=== PATIENT | male | born 1990 | race Caucasian/White ===

== ENCOUNTER 2021-03-09 12:30 | Emergency (ER) | payer OTHER ==
[2021-03-09 12:52] VITALS: BP 147/97; PULSE 80; TEMP 98.4; BMI 24.4
== END 2021-03-09 13:42 | disposition home or self-care (01) ==
LOC: FER 12:30
DX: M25.571 Pain in right ankle and joints of right foot (principal)
CPT/HCPCS: 73610-TC-RT-FY; 99284-25

== ENCOUNTER 2021-04-05 23:36 | Emergency (ER) | payer OTHER ==
[2021-04-05 23:48] VITALS: BP 153/95; PULSE 121; TEMP 98.8; BMI 25.7
[2021-04-06] MEDS ORDERED: IBUPROFEN 600 MG TABLET (FP) PO ONE ×2 (00:08→00:16)
== END 2021-04-06 01:37 | disposition home or self-care (01) ==
LOC: JER 23:36
DX: R60.0 Localized edema (principal)
CPT/HCPCS: 73610-TC-RT-FY; 73630-TC-RT-FY; 93971-TC; 99284-25

== ENCOUNTER 2021-06-03 12:37 | Emergency (ER) | payer OTHER ==
[2021-06-03 13:19] VITALS: TEMP 98; BMI 23.0
[2021-06-03] MEDS ORDERED: SODIUM CHLORIDE 0.9% 500 ML INFUS.BAG IV ONE (16:04)
[2021-06-03] MEDS ORDERED: diazePAM CARPU-JECT 10 MG/2 ML DISP.SYRIN IVPUSH ONE ×3 (16:04→22:12)
[2021-06-03] MEDS ORDERED: diazePAM CARPU-JECT 10 MG/2 ML DISP.SYRIN ONE ×2 (16:20→22:29)
[2021-06-03 16:51] LABS: BASO % 0.9 % (0-2.0); EOS % 1.3 % (0-4.5); HEMOGLOBIN 16.3 GM/dL (11.7-16.9); LYMPH % 24.6 % (8-40); MCH 35.7 pg (25.7-33.7); MCHC 34.7 g/dl (32.0-35.9); MEAN CELL VOLUME 102.9 fl (80-96); MEAN PLT VOLUME 8.8 fl (7.5-11.1); MONO % 8.4 % (3.8-10.2); NEUT % 64.8 % (42.8-82.8); PLATELET COUNT 261 10^3/uL (134-434); RBC 4.57 M/mm3 (4.00-5.60); RDW 12.7 % (11.9-15.9); WHITE BLOOD COUNT 7.6 K/mm3 (4.0-10.0)
[2021-06-03 17:06] LABS: CHLORIDE 99 mmol/L (98-107); SODIUM 138 mmol/L (136-145)
[2021-06-03 17:09] LABS: ALBUMIN 4.6 g/dl (3.4-5.0); ANION GAP 11 MMOL/L (8-16); BLOOD UREA NITROGEN 11.7 mg/dL (7-18); CO2 27 mmol/L (21-32); GLUCOSE,RANDOM 80 mg/dL (74-106)
[2021-06-03 17:12] LABS: CREATININE 0.9 mg/dL (0.55-1.3); SGOT/AST 378 U/L (15-37); SGPT/ALT 162 U/L (13-61)
[2021-06-03 17:13] LABS: BILIRUBIN,TOTAL 0.9 mg/dL (0.2-1)
[2021-06-03 17:14] LABS: TOT PROT 8.8 g/dl (6.4-8.2)
[2021-06-03 17:15] LABS: ALK PHOS 175 U/L (45-117)
[2021-06-03 17:55] LABS: LIPASE 907 U/L (73-393)
[2021-06-03 19:36] VITALS: BP 141/93; PULSE 105
[2021-06-03 21:56] LABS: OPIATES, URI NEGATIVE (NEGATIVE); PHENCYCLIDINE,URINE NEGATIVE (NEGATIVE); URINE AMPHETAMINES NEGATIVE (NEGATIVE); URINE BENZODIAZEPINES NEGATIVE (NEGATIVE)
[2021-06-03 22:14] LABS: COCAINE, UR POSITIVE (NEGATIVE); METHADONE, UR NEGATIVE (NEGATIVE); URINE BARBITURATES NEGATIVE (NEGATIVE)
== END 2021-06-04 00:35 | disposition home or self-care (01) ==
LOC: JER 12:37
PROC: 3E033NZ Introduction of Analgesics, Hypnotics, Sedatives into Peripheral Vein, Percutaneous Approach (ICD-10-PCS; principal; 2021-06-03)
PROC: 3E033GC Introduction of Other Therapeutic Substance into Peripheral Vein, Percutaneous Approach (ICD-10-PCS; 2021-06-03)
DX: F10.20 Alcohol dependence, uncomplicated (principal); R74.01 Elevation of levels of liver transaminase levels
CPT/HCPCS: 36415; 71045-TC-FY; 76705-TC; 80053; 80307; 82550; 82553; 83690; 84484; 85025; 93005; 93010; 99284-25

== ENCOUNTER 2021-07-21 13:34 | Inpatient (IN) | payer OTHER ==
[2021-07-21] MEDS ORDERED: SODIUM CHLORIDE 0.9% 500 ML INFUS.BAG IV ONE (14:34)
[2021-07-21] MEDS ORDERED: diazePAM CARPU-JECT 10 MG/2 ML DISP.SYRIN IVPUSH ONE ×2 (14:36→15:51)
[2021-07-21] MEDS ORDERED: ONDANSETRON 4 MG/2 ML VIAL IVPB ONE (14:36)
[2021-07-21 14:39] VITALS: BMI 25.7
[2021-07-21] MEDS ORDERED: diazePAM CARPU-JECT 10 MG/2 ML DISP.SYRIN ONE ×2 (14:57→15:58)
[2021-07-21 15:06] LABS: BASO % 0.8 % (0-2.0); EOS % 0.3 % (0-4.5); HEMATOCRIT 46.7 % (35.4-49); HEMOGLOBIN 16.4 GM/dL (11.7-16.9); MCH 34.8 pg (25.7-33.7); MEAN CELL VOLUME 99.5 fl (80-96); MEAN PLT VOLUME 8.4 fl (7.5-11.1); MONO % 7.6 % (3.8-10.2); NEUT % 75.3 % (42.8-82.8); PLATELET COUNT 307 10^3/uL (134-434); RBC 4.69 M/mm3 (4.00-5.60); RDW 12.6 % (11.9-15.9); WHITE BLOOD COUNT 11.9 K/mm3 (4.0-10.0)
[2021-07-21] MEDS ORDERED: FAMOTIDINE 20 MG/50 ML IVPB 20 MG/50 ML MG IVPB ONE ×2 (15:38→15:41)
[2021-07-21 15:39] LABS: CALCIUM 10.3 mg/dL (8.5-10.1)
[2021-07-21 15:41] LABS: ALBUMIN 4.6 g/dl (3.4-5.0); BLOOD UREA NITROGEN 9.6 mg/dL (7-18)
[2021-07-21 15:42] LABS: MAGNESIUM 1.8 mg/dL (1.8-2.4)
[2021-07-21 15:43] LABS: CREATININE 0.9 mg/dL (0.55-1.3); PHOSPHOROUS 3.3 mg/dL (2.5-4.9)
[2021-07-21 15:45] LABS: TOT PROT 8.7 g/dl (6.4-8.2)
[2021-07-21 16:08] LABS: LACTIC ACID 3.1 mmol/L (0.4-2.0)
[2021-07-21] MEDS ORDERED: MAGNESIUM SULF 50% (8.12 MEQ/2 ML-1 GM VIAL) IVPB ONE (16:14)
[2021-07-21] MEDS ORDERED: MAGNESIUM SULFATE IN WATER 2 GM/50 ML IVPB IVPB ONE (17:42)
[2021-07-21] MEDS ORDERED: POTASSIUM CHLORIDE TABS 20 MEQ TABLET.ER (FP) PO ONE (21:42)
[2021-07-21] MEDS ORDERED: LORazepam 1 MG TABLET PO PRN (21:43)
[2021-07-21] MEDS ORDERED: FOLIC ACID INJECTION - 1 MG, THIAMINE HCL 100 MG in SODIUM CHLORIDE 998.8 ML IVPB ONE (21:43)
[2021-07-21] MEDS ORDERED: LACTATED RINGERS SOLUTION 1,000 ML/1,000 ML INFUS.BAG IV SCH (21:45)
[2021-07-21] MEDS ORDERED: LORazepam 1 MG TABLET ONE (22:19)
[2021-07-21] MEDS: LACTATED RINGERS SOLUTION 1,000 ML/1,000 ML INFUS.BAG IV SCH (22:21)
[2021-07-21] MEDS: LORazepam 1 MG TABLET PO SCH (22:22)
[2021-07-21] MEDS ORDERED: MULTIVITAMINS (DAILY MVI) TABLET (FP) PO ONE (22:30)
[2021-07-21 23:36] LABS: OPIATES, URI NEGATIVE (NEGATIVE); PHENCYCLIDINE,URINE NEGATIVE (NEGATIVE); URINE BARBITURATES NEGATIVE (NEGATIVE)
[2021-07-21 23:41] LABS: PH,URINE 7.5 (5.0-8.0); URINE APPEARANCE CLEAR; URINE BILIRUBIN NEGATIVE (NEGATIVE); URINE COLOR YELLOW; URINE GLUCOSE (UA) NEGATIVE (NEGATIVE); URINE KETONE 1+ (NEGATIVE); URINE LEUK ESTERASE NEGATIVE (NEGATIVE); URINE NITRITE NEGATIVE (NEGATIVE); URINE PROTEIN TRACE (NEGATIVE)
[2021-07-21] MEDS ORDERED: MULTIVITAMINS (DAILY MVI) TABLET (FP) ONE (23:54)
[2021-07-21 23:59] LABS: COCAINE, UR NEGATIVE (NEGATIVE); METHADONE, UR NEGATIVE (NEGATIVE); URINE AMPHETAMINES NEGATIVE (NEGATIVE); URINE BENZODIAZEPINES POSITIVE (NEGATIVE)
[2021-07-22] MEDS ORDERED: LORazepam 1 MG TABLET ONE (04:23)
[2021-07-22] MEDS: LORazepam 1 MG TABLET PO SCH ×4 (04:27→22:57)
[2021-07-22 06:09] LABS: BASO % 0.7 % (0-2.0); EOS % 2.9 % (0-4.5); HEMATOCRIT 39.1 % (35.4-49); HEMOGLOBIN 13.8 GM/dL (11.7-16.9); LYMPH % 19.3 % (8-40); MCH 35.7 pg (25.7-33.7); MCHC 35.2 g/dl (32.0-35.9); MEAN CELL VOLUME 101.3 fl (80-96); MEAN PLT VOLUME 9.1 fl (7.5-11.1); MONO % 7.4 % (3.8-10.2); NEUT % 69.7 % (42.8-82.8); PLATELET COUNT 237 10^3/uL (134-434); RBC 3.86 M/mm3 (4.00-5.60); RDW 12.5 % (11.9-15.9); WHITE BLOOD COUNT 10.5 K/mm3 (4.0-10.0)
[2021-07-22 06:31] LABS: BLOOD UREA NITROGEN 5.8 mg/dL (7-18); MAGNESIUM 1.7 mg/dL (1.8-2.4)
[2021-07-22 06:32] LABS: CREATININE 0.7 mg/dL (0.55-1.3)
[2021-07-22 06:33] LABS: PHOSPHOROUS 2.6 mg/dL (2.5-4.9)
[2021-07-22 06:35] LABS: BILIRUBIN,TOTAL 1.7 mg/dL (0.2-1)
[2021-07-22 06:49] LABS: ALBUMIN 3.4 g/dl (3.4-5.0); CALCIUM 8.5 mg/dL (8.5-10.1); TOT PROT 6.5 g/dl (6.4-8.2)
[2021-07-22] MEDS: PANTOPRAZOLE SODIUM 40 MG VIAL IVPUSH SCH (10:09)
[2021-07-22] MEDS: THIAMINE HCL 100 MG TABLET (FP) PO SCH (10:09)
[2021-07-22] MEDS: FOLIC ACID 1 MG TABLET (FP) PO SCH (10:10)
[2021-07-22] MEDS: LACTATED RINGERS SOLUTION 1,000 ML/1,000 ML INFUS.BAG IV SCH ×2 (10:18→12:18)
[2021-07-22] MEDS: ENOXAPARIN NA (PORCINE) 40 MG/0.4 ML DISP.SYRIN SQ SCH (10:48)
[2021-07-22] MEDS: POTASSIUM CHLORIDE TABS 20 MEQ TABLET.ER (FP) PO SCH (12:17)
[2021-07-22] MEDS ORDERED: LORazepam 0.5 MG TABLET ONE (16:23)
[2021-07-22] MEDS: MAGNESIUM OXIDE 400 MG TABLET (FP) PO SCH (22:55)
[2021-07-23] MEDS: LORazepam 1 MG TABLET PO SCH ×3 (05:56→17:04)
[2021-07-23 08:43] LABS: ALBUMIN 3.8 g/dl (3.4-5.0); BLOOD UREA NITROGEN 3.1 mg/dL (7-18); CALCIUM 9.2 mg/dL (8.5-10.1); MAGNESIUM 1.8 mg/dL (1.8-2.4)
[2021-07-23 08:46] LABS: CREATININE 0.7 mg/dL (0.55-1.3)
[2021-07-23 08:47] LABS: PHOSPHOROUS 2.2 mg/dL (2.5-4.9)
[2021-07-23 08:48] LABS: BILIRUBIN,TOTAL 1.4 mg/dL (0.2-1); TOT PROT 7.2 g/dl (6.4-8.2)
[2021-07-23] MEDS: THIAMINE HCL 100 MG TABLET (FP) PO SCH (09:51)
[2021-07-23] MEDS: FOLIC ACID 1 MG TABLET (FP) PO SCH (09:51)
[2021-07-23] MEDS: POTASSIUM CHLORIDE TABS 20 MEQ TABLET.ER (FP) PO SCH (09:52)
[2021-07-23] MEDS: MAGNESIUM OXIDE 400 MG TABLET (FP) PO SCH (09:52)
[2021-07-23] MEDS: PANTOPRAZOLE SODIUM 40 MG VIAL IVPUSH SCH (09:52)
[2021-07-23] MEDS: ENOXAPARIN NA (PORCINE) 40 MG/0.4 ML DISP.SYRIN SQ SCH ×2 (10:45→10:48)
[2021-07-23] MEDS ORDERED: NAPH,MB-DB/K PH,MBDB POWDER PACKET PO SCH (14:15)
[2021-07-23] MEDS: LACTATED RINGERS SOLUTION 1,000 ML/1,000 ML INFUS.BAG IV SCH (14:23)
[2021-07-23] MEDS ORDERED: PT OWN MED DRAWER 7, Y5N ONE (17:39)
[2021-07-23 17:54] VITALS: TEMP 98.7
[2021-07-23] MEDS ORDERED: LISINOPRIL 20 MG TABLET PO ONE (18:08)
[2021-07-23] MEDS ORDERED: LACTATED RINGERS SOLUTION 1,000 ML/1,000 ML INFUS.BAG IV SCH (18:11)
[2021-07-23 20:06] VITALS: PULSE 127
[2021-07-23 20:12] VITALS: BP 160/100
[2021-07-24] MEDS ORDERED: LORazepam 0.5 MG TABLET PO PRN
[2021-07-24] MEDS ORDERED: LORazepam 0.5 MG TABLET PO SCH (05:00)
[2021-07-24] MEDS ORDERED: LISINOPRIL 20 MG TABLET PO SCH (10:00)
[2021-07-25] MEDS ORDERED: LORazepam 0.5 MG TABLET PO ONE (05:00)
== END 2021-07-23 20:45 | disposition left against medical advice (07) | DRG 770 ==
LOC: JER 13:34 → JERBED 18:29 → J4W 07-22 07:28
PROVIDERS: ADMIT Internal Medicine; ATTEND Internal Medicine
DX: F10.239 Alcohol dependence with withdrawal, unspecified (principal); E78.5 Hyperlipidemia, unspecified; I10 Essential (primary) hypertension; F14.90 Cocaine use, unspecified, uncomplicated; D72.829 Elevated white blood cell count, unspecified; K76.0 Fatty (change of) liver, not elsewhere classified; K86.1 Other chronic pancreatitis; E83.52 Hypercalcemia; E87.6 Hypokalemia; R74.01 Elevation of levels of liver transaminase levels; Z72.0 Tobacco use
CPT/HCPCS: 36415; 70450-TC; 71045-TC-FY; 72125-TC; 74176-TC; 76705-TC; 80053; 80061; 80307; 81003; 82550; 82553; 83605; 83690; 83735; 84100; 84484; 85025; 86705; 86707; 86708; 87040; 87086; 87340; 87350; 87517; 87522; 93005; 93010; 99291; C9803; U0003; U0005

== ENCOUNTER 2021-08-15 15:31 | Inpatient (IN) | payer OTHER ==
[2021-08-15] MEDS ORDERED: NICOTINE 10 MG CARTRIDGE (INHALER) IH PRN (18:03)
[2021-08-15] MEDS ORDERED: MAGNESIUM HYDROX 2400MG/30ML ORAL SUSPENSION 30 ML CUP PO PRN (18:03)
[2021-08-15] MEDS ORDERED: BISMUTH SUBSALICYLATE 524 MG/30 ML PO PRN (18:03)
[2021-08-15] MEDS ORDERED: ONDANSETRON *ODT* 4 MG TABLET SL PRN (18:03)
[2021-08-15] MEDS ORDERED: MAGNESIUM CITRATE 300 ML BOTTLE PO PRN (18:03)
[2021-08-15] MEDS ORDERED: MAG HYDROX/AL HYDROX/SIMETH 30 ML UNIT-DOSE CUP PO PRN (18:03)
[2021-08-15] MEDS ORDERED: IBUPROFEN 400 MG TABLET (FP) PO PRN (18:03)
[2021-08-15] MEDS ORDERED: ACETAMINOPHEN 325 MG TABLET (FP) PO PRN ×2 (18:03)
[2021-08-15] MEDS ORDERED: MENTHOL/PHENOL 1 EACH UD MM PRN (18:03)
[2021-08-15 18:54] VITALS: BMI 24.4
[2021-08-15] MEDS: NICOTINE 21 MG/24 HOURS TOPICAL PATCH TD SCH (19:25)
[2021-08-15] MEDS: LORazepam 2 MG TABLET PO SCH ×2 (19:25→22:25)
[2021-08-15] MEDS: PRENATAL VITAMINS W/ FOLIC ACID TABLET (FP) PO SCH (19:30)
[2021-08-15] MEDS: MELATONIN 5 MG TABLETS PO SCH (22:25)
[2021-08-15] MEDS: THIAMINE HCL 100 MG TABLET (FP) PO SCH (22:25)
[2021-08-15] MEDS: hydrOXYzine PAMOATE 25 MG CAPSULE (FP) PO SCH (22:25)
[2021-08-16] MEDS: hydrOXYzine PAMOATE 25 MG CAPSULE (FP) PO SCH ×5 (05:50→22:29)
[2021-08-16] MEDS: LORazepam 2 MG TABLET PO SCH ×4 (05:50→22:30)
[2021-08-16] MEDS: NICOTINE 21 MG/24 HOURS TOPICAL PATCH TD SCH (10:41)
[2021-08-16] MEDS: PRENATAL VITAMINS W/ FOLIC ACID TABLET (FP) PO SCH (10:41)
[2021-08-16 12:13] LABS: HEMATOCRIT 41.8 % (35.4-49); HEMOGLOBIN 14.8 GM/dL (11.7-16.9); MCH 35.7 pg (25.7-33.7); MCHC 35.3 g/dl (32.0-35.9); MEAN CELL VOLUME 101.1 fl (80-96); MEAN PLT VOLUME 9.5 fl (7.5-11.1); PLATELET COUNT 269 10^3/uL (134-434); RBC 4.13 M/mm3 (4.00-5.60); RDW 12.7 % (11.9-15.9); WHITE BLOOD COUNT 11.1 K/mm3 (4.0-10.0)
[2021-08-16 12:45] LABS: CALCIUM 9.6 mg/dL (8.5-10.1)
[2021-08-16 12:46] LABS: ALBUMIN 3.6 g/dl (3.4-5.0); BLOOD UREA NITROGEN 8.7 mg/dL (7-18)
[2021-08-16 12:49] LABS: CREATININE 0.8 mg/dL (0.55-1.3)
[2021-08-16 12:50] LABS: BILIRUBIN,TOTAL 1.2 mg/dL (0.2-1)
[2021-08-16 12:51] LABS: TOT PROT 6.9 g/dl (6.4-8.2)
[2021-08-16] MEDS: LORazepam 1 MG TABLET PO PRN ×2 (14:06→20:42)
[2021-08-16] MEDS: METHOCARBAMOL 500 MG TABLET PO PRN (18:35)
[2021-08-16] MEDS ORDERED: cloNIDine HCL 0.1 MG TABLET PO ONE (21:44)
[2021-08-16] MEDS: MELATONIN 5 MG TABLETS PO SCH (22:29)
[2021-08-16] MEDS: THIAMINE HCL 100 MG TABLET (FP) PO SCH (22:29)
[2021-08-17] MEDS: LORazepam 1 MG TABLET PO SCH ×4 (05:31→22:18)
[2021-08-17] MEDS: METHOCARBAMOL 500 MG TABLET PO PRN ×2 (05:31→17:59)
[2021-08-17] MEDS: hydrOXYzine PAMOATE 25 MG CAPSULE (FP) PO SCH ×5 (05:31→22:18)
[2021-08-17] MEDS ORDERED: PATIENT'S OWN MEDICATION (NON-FORMULARY) (Lisinopril/Hydrochlorothiazide [Lisinopril-Hctz PO SCH (10:00)
[2021-08-17] MEDS: SPIRONOLACTONE 25 MG TABLET PO SCH (10:19)
[2021-08-17] MEDS: LISINOPRIL 20 MG TABLET PO SCH (10:20)
[2021-08-17] MEDS: HYDROCHLOROTHIAZIDE 25 MG TABLET (FP) PO SCH (10:20)
[2021-08-17] MEDS: PRENATAL VITAMINS W/ FOLIC ACID TABLET (FP) PO SCH (10:22)
[2021-08-17] MEDS: NICOTINE 21 MG/24 HOURS TOPICAL PATCH TD SCH (10:22)
[2021-08-17] MEDS: LORazepam 1 MG TABLET PO PRN (13:36)
[2021-08-17 16:53] LABS: HEMOGLOBIN 13.5 GM/dL (11.7-16.9)
[2021-08-17 16:55] LABS: HEMATOCRIT 39.5 % (35.4-49); MCH 35.5 pg (25.7-33.7); MCHC 34.2 g/dl (32.0-35.9); MEAN CELL VOLUME 103.7 fl (80-96); MEAN PLT VOLUME 9.6 fl (7.5-11.1); PLATELET COUNT 248 10^3/uL (134-434); RBC 3.81 M/mm3 (4.00-5.60); RDW 12.6 % (11.9-15.9); WHITE BLOOD COUNT 8.9 K/mm3 (4.0-10.0)
[2021-08-17] MEDS: MELATONIN 5 MG TABLETS PO SCH (22:18)
[2021-08-17] MEDS: THIAMINE HCL 100 MG TABLET (FP) PO SCH (22:18)
[2021-08-18] MEDS ORDERED: LORazepam 0.5 MG TABLET PO PRN
[2021-08-18] MEDS: hydrOXYzine PAMOATE 25 MG CAPSULE (FP) PO SCH ×5 (05:29→22:13)
[2021-08-18] MEDS: LORazepam 0.5 MG TABLET PO SCH ×4 (05:29→22:14)
[2021-08-18] MEDS: PRENATAL VITAMINS W/ FOLIC ACID TABLET (FP) PO SCH (10:35)
[2021-08-18] MEDS: SPIRONOLACTONE 25 MG TABLET PO SCH (10:35)
[2021-08-18] MEDS: LISINOPRIL 20 MG TABLET PO SCH (10:35)
[2021-08-18] MEDS: NICOTINE 21 MG/24 HOURS TOPICAL PATCH TD SCH (10:36)
[2021-08-18] MEDS: HYDROCHLOROTHIAZIDE 25 MG TABLET (FP) PO SCH (10:37)
[2021-08-18] MEDS: MELATONIN 5 MG TABLETS PO SCH (22:13)
[2021-08-18] MEDS: THIAMINE HCL 100 MG TABLET (FP) PO SCH (22:13)
[2021-08-19] MEDS: METHOCARBAMOL 500 MG TABLET PO PRN (02:48)
[2021-08-19] MEDS ORDERED: LORazepam 0.5 MG TABLET PO ONE (05:00)
[2021-08-19] MEDS: hydrOXYzine PAMOATE 25 MG CAPSULE (FP) PO SCH ×2 (05:24→10:56)
[2021-08-19 09:22] VITALS: BP 125/82; PULSE 103; TEMP 97.1
[2021-08-19] MEDS: SPIRONOLACTONE 25 MG TABLET PO SCH (10:55)
[2021-08-19] MEDS: HYDROCHLOROTHIAZIDE 25 MG TABLET (FP) PO SCH (10:55)
[2021-08-19] MEDS: LISINOPRIL 20 MG TABLET PO SCH (10:56)
[2021-08-19] MEDS: PRENATAL VITAMINS W/ FOLIC ACID TABLET (FP) PO SCH (10:56)
[2021-08-19] MEDS: NICOTINE 21 MG/24 HOURS TOPICAL PATCH TD SCH (10:56)
== END 2021-08-19 09:27 | disposition home or self-care (01) | DRG 775 ==
LOC: YASAS 15:31 → Y3N 18:10
PROVIDERS: ADMIT Allergy & Immunology; ATTEND Allergy & Immunology
PROC: HZ2ZZZZ Detoxification Services for Substance Abuse Treatment (ICD-10-PCS; principal; 2021-08-15)
DX: F10.230 Alcohol dependence with withdrawal, uncomplicated (principal); F12.20 Cannabis dependence, uncomplicated; F17.210 Nicotine dependence, cigarettes, uncomplicated; F19.24 Other psychoactive substance dependence with psychoactive substance-induced mood disorder; I10 Essential (primary) hypertension; K76.0 Fatty (change of) liver, not elsewhere classified
CPT/HCPCS: 36415; 71045-TC-FY; 80053; 82550; 82553; 83690; 83735; 84484; 85025; 85027; 85610; 85730; 86780; 93005; 93010; 99281-25; C9803; G0378; J0735; U0003; U0005

== ENCOUNTER 2021-08-20 00:13 | Emergency (ER) | payer OTHER ==
[2021-08-20 00:42] VITALS: BP 150/96; PULSE 130; TEMP 97.2; BMI 24.0
[2021-08-20] MEDS ORDERED: chlordiazePOXIDE HCL 25 MG CAPSULE PO ONE (01:28)
[2021-08-20] MEDS ORDERED: diazePAM 5 MG TABLET PO ONE (01:29)
[2021-08-20] MEDS ORDERED: diazePAM 5 MG TABLET ONE (01:30)
== END 2021-08-20 02:20 | disposition left against medical advice (07) ==
LOC: JER 00:13
DX: F41.9 Anxiety disorder, unspecified (principal); R25.1 Tremor, unspecified
CPT/HCPCS: 99283-25

== ENCOUNTER 2021-11-13 20:54 | Observation (INO) | payer OTHER ==
[2021-11-13 21:10] VITALS: BMI 26.6
[2021-11-13] MEDS ORDERED: SODIUM CHLORIDE 0.9% 500 ML INFUS.BAG IV ONE ×2 (21:49→22:58)
[2021-11-13] MEDS ORDERED: ONDANSETRON 4 MG/2 ML VIAL IVPB ONE ×2 (22:04→23:31)
[2021-11-13] MEDS ORDERED: ONDANSETRON 4 MG/2 ML VIAL ONE ×2 (22:19→23:33)
[2021-11-13 22:26] LABS: BASO % 0.4 % (0-2.0); EOS % 0.3 % (0-4.5); HEMATOCRIT 47.2 % (35.4-49); HEMOGLOBIN 16.1 GM/dL (11.7-16.9); LYMPH % 11.6 % (8-40); MCH 33.5 pg (25.7-33.7); MCHC 34.2 g/dl (32.0-35.9); MEAN CELL VOLUME 98.1 fl (80-96); MEAN PLT VOLUME 7.9 fl (7.5-11.1); MONO % 5.9 % (3.8-10.2); NEUT % 81.8 % (42.8-82.8); PLATELET COUNT 328 10^3/uL (134-434); RBC 4.81 M/mm3 (4.00-5.60); WHITE BLOOD COUNT 11.2 K/mm3 (4.0-10.0)
[2021-11-13 22:40] LABS: CHLORIDE 102 mmol/L (98-107); SODIUM 141 mmol/L (136-145)
[2021-11-13 22:42] LABS: ALBUMIN 4.6 g/dl (3.4-5.0); ANION GAP 12 MMOL/L (8-16); CALCIUM 9.7 mg/dL (8.5-10.1); CO2 28 mmol/L (21-32); GLUCOSE,RANDOM 105 mg/dL (74-106)
[2021-11-13 22:43] LABS: BLOOD UREA NITROGEN 7.4 mg/dL (7-18)
[2021-11-13 22:45] LABS: CREATININE 1.6 mg/dL (0.55-1.3); SGOT/AST 111 U/L (15-37); SGPT/ALT 110 U/L (13-61)
[2021-11-13 22:47] LABS: BILIRUBIN,TOTAL 0.6 mg/dL (0.2-1); TOT PROT 8.3 g/dl (6.4-8.2)
[2021-11-13 22:48] LABS: ALK PHOS 136 U/L (45-117)
[2021-11-13] MEDS ORDERED: diazePAM 5 MG TABLET PO ONE (23:07)
[2021-11-13] MEDS ORDERED: diazePAM 5 MG TABLET ONE (23:15)
[2021-11-13] MEDS ORDERED: diazePAM CARPU-JECT 10 MG/2 ML DISP.SYRIN IVPUSH ONE (23:44)
[2021-11-13] MEDS ORDERED: diazePAM CARPU-JECT 10 MG/2 ML DISP.SYRIN ONE (23:48)
[2021-11-14 00:01] LABS: LIPASE 164 U/L (73-393)
[2021-11-14] MEDS ORDERED: TRIMETHOBENZAMIDE HCL 200MG/2ML INJ IM PRN ×2 (01:32→08:25)
[2021-11-14 01:48] LABS: MAGNESIUM 2.1 mg/dL (1.8-2.4)
[2021-11-14] MEDS ORDERED: FOLIC ACID INJECTION - 1 MG, THIAMINE HCL 100 MG, MULTIVIT INJECTION ADULT 10 ML in SOD... IVPB ONE (01:50)
[2021-11-14 01:51] LABS: PHOSPHOROUS 5.4 mg/dL (2.5-4.9)
[2021-11-14] MEDS ORDERED: LORazepam 1 MG TABLET PO PRN (02:02)
[2021-11-14] MEDS ORDERED: LORazepam 2 MG/ML SDV VIAL IVPUSH ONE (05:00)
[2021-11-14] MEDS ORDERED: LORazepam 1 MG TABLET PO SCH (05:00)
[2021-11-14 05:59] LABS: EPI CELLS >36 /uL (0-25.1); HYALINE CASTS 9 /uL (0-3.1); URINE APPEARANCE CLOUDY; URINE BACTERIA 16 /uL (0-1359); URINE BILIRUBIN NEGATIVE (NEGATIVE); URINE COLOR YELLOW; URINE GLUCOSE (UA) NEGATIVE (NEGATIVE); URINE KETONE 1+ (NEGATIVE); URINE LEUK ESTERASE NEGATIVE (NEGATIVE); URINE NITRITE NEGATIVE (NEGATIVE); URINE PROTEIN 1+ (NEGATIVE); URINE RBC 9 /uL (0-23.9); URINE WBC 37 /uL (0-25.8)
[2021-11-14] MEDS ORDERED: MAG HYDROX/AL HYDROX/SIMETH -MYLANTA- ORAL SUSPENSION PO SCH (06:00)
[2021-11-14 06:03] LABS: COCAINE, UR NEGATIVE (NEGATIVE)
[2021-11-14 06:04] LABS: OPIATES, URI NEGATIVE (NEGATIVE); PHENCYCLIDINE,URINE NEGATIVE (NEGATIVE); URINE BARBITURATES NEGATIVE (NEGATIVE); URINE BENZODIAZEPINES NEGATIVE (NEGATIVE)
[2021-11-14 06:18] LABS: METHADONE, UR NEGATIVE (NEGATIVE); URINE AMPHETAMINES NEGATIVE (NEGATIVE)
[2021-11-14] MEDS ORDERED: LORazepam 2 MG/ML SDV VIAL IVPUSH PRN (09:30)
[2021-11-14] MEDS ORDERED: THIAMINE HCL 100 MG TABLET (FP) PO SCH (10:00)
[2021-11-14] MEDS ORDERED: PANTOPRAZOLE SODIUM 40 MG VIAL IVPUSH SCH (10:00)
[2021-11-14] MEDS: FOLIC ACID 1 MG TABLET (FP) PO SCH (10:17)
[2021-11-14] MEDS: MULTIVITAMINS (DAILY MVI) TABLET (FP) PO SCH (10:18)
[2021-11-14] MEDS: MAG HYDROX/AL HYDROX/SIMETH 30 ML UNIT-DOSE CUP PO SCH ×2 (10:18→22:23)
[2021-11-14] MEDS: CYANOCOBALAMIN (VITAMIN B-12) 100 MCG TABLET PO SCH (10:18)
[2021-11-14] MEDS: THIAMINE HCL 200 MG/2 ML VIAL IVPB SCH (11:08)
[2021-11-14] MEDS: LORazepam 2 MG/ML SDV VIAL IVPB SCH ×3 (12:02→22:23)
[2021-11-14 12:39] LABS: BASO % 0.2 % (0-2.0); HEMATOCRIT 40.8 % (35.4-49); HEMOGLOBIN 13.8 GM/dL (11.7-16.9); LYMPH % 5.5 % (8-40); MCH 33.2 pg (25.7-33.7); MCHC 33.9 g/dl (32.0-35.9); MEAN CELL VOLUME 98.2 fl (80-96); MEAN PLT VOLUME 9.1 fl (7.5-11.1); MONO % 8.6 % (3.8-10.2); NEUT % 85.7 % (42.8-82.8); PLATELET COUNT 281 10^3/uL (134-434); RBC 4.16 M/mm3 (4.00-5.60); RDW 13.7 % (11.9-15.9); WHITE BLOOD COUNT 16.2 K/mm3 (4.0-10.0)
[2021-11-14 13:01] LABS: BLOOD UREA NITROGEN 9.4 mg/dL (7-18); CALCIUM 8.8 mg/dL (8.5-10.1); MAGNESIUM 1.7 mg/dL (1.8-2.4)
[2021-11-14 13:02] LABS: PHOSPHOROUS 3.4 mg/dL (2.5-4.9)
[2021-11-14 13:05] LABS: BILIRUBIN,TOTAL 1.8 mg/dL (0.2-1); TOT PROT 7.1 g/dl (6.4-8.2)
[2021-11-14] MEDS: SODIUM CHLORIDE 1,000 ML IV SCH (17:33)
[2021-11-15] MEDS: LORazepam 1 MG TABLET PO SCH ×3 (04:18→16:49)
[2021-11-15] MEDS: SODIUM CHLORIDE 1,000 ML IV SCH ×2 (06:48→16:50)
[2021-11-15] MEDS: FOLIC ACID 1 MG TABLET (FP) PO SCH (09:25)
[2021-11-15] MEDS: THIAMINE HCL 200 MG/2 ML VIAL IVPB SCH (09:26)
[2021-11-15] MEDS: MULTIVITAMINS (DAILY MVI) TABLET (FP) PO SCH (09:26)
[2021-11-15] MEDS: MAG HYDROX/AL HYDROX/SIMETH 30 ML UNIT-DOSE CUP PO SCH (09:26)
[2021-11-15 09:49] LABS: INR 1.11 (0.83-1.09); PROTHROMBIN TIME (PATIENT) 12.8 SEC (9.7-13.0)
[2021-11-15 09:50] LABS: BASO % 0.6 % (0-2.0); EOS % 1.7 % (0-4.5); HEMATOCRIT 38.2 % (35.4-49); HEMOGLOBIN 13.5 GM/dL (11.7-16.9); LYMPH % 21.3 % (8-40); MCH 34.4 pg (25.7-33.7); MCHC 35.4 g/dl (32.0-35.9); MEAN CELL VOLUME 97.2 fl (80-96); MEAN PLT VOLUME 9.1 fl (7.5-11.1); MONO % 9.7 % (3.8-10.2); NEUT % 66.7 % (42.8-82.8); PLATELET COUNT 225 10^3/uL (134-434); RBC 3.94 M/mm3 (4.00-5.60); RDW 13.3 % (11.9-15.9); WHITE BLOOD COUNT 7.7 K/mm3 (4.0-10.0)
[2021-11-15] MEDS ORDERED: PANTOPRAZOLE 20 MG TABLET PO SCH (10:00)
[2021-11-15] MEDS: CYANOCOBALAMIN (VITAMIN B-12) 100 MCG TABLET PO SCH (10:00)
[2021-11-15 10:46] LABS: ALBUMIN 3.2 g/dl (3.4-5.0)
[2021-11-15 10:48] LABS: BILIRUBIN,DIRECT 0.4 mg/dL (0.0-0.2)
[2021-11-15 10:50] LABS: BILIRUBIN,TOTAL 1.5 mg/dL (0.2-1); CALCIUM 8.4 mg/dL (8.5-10.1); TOT PROT 6.2 g/dl (6.4-8.2)
[2021-11-15 10:51] LABS: BLOOD UREA NITROGEN 5.8 mg/dL (7-18); MAGNESIUM 1.8 mg/dL (1.8-2.4)
[2021-11-15 10:53] LABS: CREATININE 0.8 mg/dL (0.55-1.3); PHOSPHOROUS 2.1 mg/dL (2.5-4.9)
[2021-11-15 10:54] LABS: TOT PROT 6.2 g/dl (6.4-8.2)
[2021-11-15 10:55] LABS: BILIRUBIN,TOTAL 1.6 mg/dL (0.2-1)
[2021-11-15 10:57] LABS: ALBUMIN 3.2 g/dl (3.4-5.0)
[2021-11-15 14:06] VITALS: BP 146/95; PULSE 79; TEMP 98.2
[2021-11-16] MEDS ORDERED: LORazepam 0.5 MG TABLET PO PRN
[2021-11-16] MEDS ORDERED: LORazepam 0.5 MG TABLET PO SCH (05:00)
[2021-11-17] MEDS ORDERED: LORazepam 0.5 MG TABLET PO ONE (05:00)
== END 2021-11-15 18:55 | disposition home or self-care (01) ==
LOC: JER 20:54 → JERBED 23:09 → J8W 11-14 03:04
PROVIDERS: ADMIT Internal Medicine; ATTEND Internal Medicine
PROC: 3E033GC Introduction of Other Therapeutic Substance into Peripheral Vein, Percutaneous Approach (ICD-10-PCS; principal; 2021-11-13)
PROC: 3E033NZ Introduction of Analgesics, Hypnotics, Sedatives into Peripheral Vein, Percutaneous Approach (ICD-10-PCS; 2021-11-13)
PROC: 3E033GC Introduction of Other Therapeutic Substance into Peripheral Vein, Percutaneous Approach (ICD-10-PCS; 2021-11-13)
PROC: 3E033NZ Introduction of Analgesics, Hypnotics, Sedatives into Peripheral Vein, Percutaneous Approach (ICD-10-PCS; 2021-11-13)
PROC: 3E033GC Introduction of Other Therapeutic Substance into Peripheral Vein, Percutaneous Approach (ICD-10-PCS; 2021-11-13)
PROC: 3E0337Z Introduction of Electrolytic and Water Balance Substance into Peripheral Vein, Percutaneous Approach (ICD-10-PCS; 2021-11-13)
PROC: 3E033GC Introduction of Other Therapeutic Substance into Peripheral Vein, Percutaneous Approach (ICD-10-PCS; 2021-11-13)
PROC: 3E0337Z Introduction of Electrolytic and Water Balance Substance into Peripheral Vein, Percutaneous Approach (ICD-10-PCS; 2021-11-13)
PROC: 3E023GC Introduction of Other Therapeutic Substance into Muscle, Percutaneous Approach (ICD-10-PCS; 2021-11-13)
DX: F10.239 Alcohol dependence with withdrawal, unspecified (principal); K92.0 Hematemesis; I10 Essential (primary) hypertension; E78.5 Hyperlipidemia, unspecified; K76.0 Fatty (change of) liver, not elsewhere classified; K86.1 Other chronic pancreatitis; F17.210 Nicotine dependence, cigarettes, uncomplicated; K70.10 Alcoholic hepatitis without ascites; F19.10 Other psychoactive substance abuse, uncomplicated; N17.9 Acute kidney failure, unspecified; W19.XXXA Unspecified fall, initial encounter; Y93.89 Activity, other specified; Y92.89 Other specified places as the place of occurrence of the external cause; R55 Syncope and collapse; R00.0 Tachycardia, unspecified; F12.10 Cannabis abuse, uncomplicated
CPT/HCPCS: 36415; 70450-TC; 71045-TC-FY; 76705-TC; 76775-TC; 80053; 80076; 80307; 81003; 82436; 82550; 82553; 82570; 83690; 83735; 84100; 84133; 84300; 85025; 85610; 86707; 86708; 87086; 87340; 87517; 87522; 87902; 93005; 93010; 96365; 96367; 96372; 96374; 96375; 96376; 99285-25; C9803; G0378; U0003; U0005